=== PATIENT | male | born 1990 | race Caucasian/White ===

== ENCOUNTER 2017-12-27 23:26 | Emergency (ER) | payer OTHER ==
[2017-12-28] MEDS: KETOROLAC 15 MG INJ IM (01:28)
== END 2017-12-28 03:07 | disposition home or self-care (01) ==
LOC: FTE 23:26
DX: R50.9 Fever, unspecified (principal); R51 Headache; R05 Cough; R53.83 Other fatigue
CPT/HCPCS: 87400; 96372; 99284-25